=== PATIENT | male | born 1945 | race African-American/Black ===

== ENCOUNTER 2019-10-11 11:59 | Emergency (ER) | payer MEDICARE ==
[~2019-10-11] VITALS: Ht 177.8 cm; Wt 145.4 kg
[2019-10-11] MEDS ORDERED: ASPI-989 PO (12:03)
[2019-10-11 13:39] LABS: GLUCOSE,POINT OF CARE 132 MG/DL (70-110)
[2019-10-11] MEDS ORDERED: OXYMETAZOLINE HCL 0.05% 15 ML NASAL SPRAY NASAL ONE (13:45)
[2019-10-11 14:05] VITALS: BP 149/82
== END 2019-10-11 14:11 | disposition home or self-care (01) ==
LOC: EMS 12:05
DX: H66.92 Otitis media, unspecified, left ear (principal); F17.200 Nicotine dependence, unspecified, uncomplicated